=== PATIENT | male | born 1970 | race Caucasian/White ===

== ENCOUNTER 2020-12-07 06:09 | Day surgery (SDC) | payer OTHER ==
[2020-12-07 06:48] VITALS: BP 146/96
[2020-12-07] MEDS ORDERED: BUPIVACAINE/PF (0.5%) 5 MG/1 ML 30 ML VIAL INFILTRATI ONE ×2 (06:56→08:13)
[2020-12-07] MEDS ORDERED: LIDOCAINE (1%) 10 MG/1 ML VIAL 20 ML MDV ONE (06:56)
[2020-12-07] MEDS ORDERED: LIDOCAINE (1%) 10 MG/1 ML VIAL 20 ML MDV INFILTRATI ONE (08:12)
--- NOTE | 2020-12-07 10:30 | Procedure Note ---
Date of procedure: 12/07/20 Pre-op diagnosis: scalp cyst Post-op diagnosis: same Procedure: excision of scalp cyst Findings: Pt identified in preop area and taken back to minor procedure room and positioned on stretcher in prone position. Hair was clipped at surgical site and area prepped and draped in sterile fashion. Time out performed. Local anesthetic infilitrated into skin at intended incision site. An elliptical incision was made over the area of the cyst using 10 blade. Dissection carried out using electrocautery until cyst was identified. Cyst was under tension and did rupture at the superficial margin with white, solid material expressed. The cyst wall was dissected from the surrounding tissue using hemostat and cautery. Once the entirety of the cyst was dissected free it was removed from the wound. The cyst was passed off the table as a specimen as 2 pieces. It measures approximately 1.5cm. The wound was checked for hemostasis which was carefully achieved. The incision was closed using 3-0 monocryl subcuticular running stitch and demabond. The patient tolerated the procedure well. All sharps, instrument, sponge counts were correct. The patient was discharged to home in stable condition. Anesthesia: local Surgeon: ISAURO ZURITA Estimated blood loss: other (30cc) Pathology: list (cyst of scalp) Specimen disposition: to lab Condition: stable Disposition: other (Home)
== END 2020-12-07 08:36 | disposition home or self-care (01) ==
LOC: OR 06:09
PROVIDERS: ATTEND Surgery
DX: R22.0 Localized swelling, mass and lump, head (principal); L72.11 Pilar cyst; I10 Essential (primary) hypertension; E11.9 Type 2 diabetes mellitus without complications; Z72.89 Other problems related to lifestyle; Z79.899 Other long term (current) drug therapy; Z79.84 Long term (current) use of oral hypoglycemic drugs
CPT/HCPCS: 82962; 88304